=== PATIENT | male | born 1985 | race Caucasian/White ===

== ENCOUNTER 2020-11-05 18:05 | Emergency (ER) | payer OTHER ==
[~2020-11-05] VITALS: Ht 175.3 cm; Wt 77.1 kg
[~2020-11-05 18:05] MED LIST: GARAMYCIN5 M1 OP; IBUPROFEN 200200 M1 PO; NORCO 5-325 TA1 EACH PO; PENICILLIN V P500 MG PO
[2020-11-05] MEDS ORDERED: NOHOMEMEDICATIONS (18:22)
[2020-11-05 19:02] LABS: ABSOLUTE NEUTROPHILS 5.5 thou/uL (1.4-8.2); BASOPHILS 0.8 % (0.0-2.0); EOSINOPHILS 0.2 % (0.0-3.0); HEMATOCRIT 44.1 % (42.0-52.0); HEMOGLOBIN 15.4 gm/dL (14.0-18.0); LYMPHOCYTES 22.5 % (24.0-44.0); MCHC 34.9 g/dL (28.0-37.0); MCV 94.7 fL (80.0-100.0); MONOCYTES 6.9 % (1.0-8.0); PLATELET COUNT 275 thou/uL (150-400); POLYS 69.6 % (36.0-66.0); RBC 4.66 mil/uL (4.50-6.00); RDW 12.1 % (10.5-14.5); WBC 7.8 thou/uL (4.0-11.0)
[2020-11-05 19:05] LABS: AMP/METHAMP POSITIVE (Negative); BARBITURATES Negative (Negative); BENZODIAZEPINES Negative (Negative); COCAINE Negative (Negative); METHADONE Negative (Negative); OPIATES Negative (Negative); PCP Negative (Negative)
[2020-11-05 19:11] LABS: CREATININE 1.3 mg/dL (0.7-1.3); POTASSIUM 3.4 mmol/L (3.5-5.1)
[2020-11-05 19:17] LABS: ALBUMIN 4.7 g/dL (3.4-5.0); TOTAL BILIRUBIN 0.9 mg/dL (0.2-1.0); TOTAL PROTEIN 7.6 g/dL (6.4-8.2)
[2020-11-05 19:58] VITALS: BP 118/79
--- NOTE | 2020-11-06 07:17 | EKG ---
[place] [address] [facility] [place] [address] ELECTROCARDIOGRAM REPORT Name: YAHIR FERREIRA Room #: [facility] ALAN Leyva#: [id number] Admission: 11/05/20 Attend Phys: Discharge: 11/05/20 Date of : 83 Report #: [id number] [facility] ED Test Date: 2020-11-05 Test Time: 18:49:23 Pat Name: YAHIR FERREIRA Department: Room: Gender: M [employer]: : 1985 Requested By: Shreyas Das Order Number: [id number] MD: Aris Echavarria Measurements Intervals [place] Rate: 122 P: 46 MT: 160 QRS: 1 QRSD: 78 T: 53 QT: 307 QTc: 438 Interpretive Statements Sinus tachycardia RSR' in V1 or V2, right VCD or RVH No previous ECG available for comparison Electronically Signed On 11-06-2020 7:17:29 CDT by Aris Echavarria [email or web address] <ELECTRONICALLY SIGNED> By: Aris Echavarria MD, [facility] 11/06/20 0717 1849 1849 Aris Echavarria MD, FACC /EPI
== END 2020-11-05 19:58 | disposition home or self-care (01) ==
LOC: ER 18:05
PROVIDERS: Emergency Medicine
DX: R53.81 Other malaise (principal); F17.210 Nicotine dependence, cigarettes, uncomplicated